=== PATIENT | male | born 1995 | race American Indian/Alaskan Native ===

== ENCOUNTER 2019-07-26 01:17 | Emergency (ER) | payer MEDICARE ==
--- NOTE | 2019-07-26 01:44 | Event Note ---
Date of service: 07/26/19 Face to Face: 23-year-old gentleman presenting with disorganized behavior, and presumed psychosis. There is no evidence of trauma. He is walking with a steady gait. Thought process is tangential and he is not demonstrative of decision-making capacity at this time. He is placed on a 1013, screening laboratory studies ordered, psychiatric consultation requested. Vital Signs 07/26/19 01:24 Temperature 97.7 F Pulse Rate 87 Respiratory 18 Rate Blood Pressure 135/84 O2 Sat by Pulse 97 Oximetry
[2019-07-26] MEDS ORDERED: HALOPERIDOL LACTATE 5 MG/1 ML INJ IM PRN (02:02)
[2019-07-26] MEDS ORDERED: LORazepam 2 MG/ML VIAL IM PRN (02:02)
--- NOTE | 2019-07-26 02:08 | Emergency Department Report ---
ED Psych HPI - General Chief Complaint: Psych Stated Complaint: MH EVALUATION Time Seen by Provider: 07/26/19 01:42 Source: patient Mode of arrival: Ambulatory - History of Present Illness Initial Comments: This is a 23-year-old male nontoxic, well nourished in appearance, no acute signs of distress presents to the ED with c/o of psychosis and audio and visual hallucinations. Patient stated he has been out of his medications. Patient denies any suicidal or homicidal ideation. Patient denies any fever, chills, nausea, vomiting, chest pain, shortness of breath, headache or stiff neck. Patient otherwise denies any symptoms. Denies any alcohol or drug consumption. Patient denies any allergies. MD Complaint: other (psychosis with hallucinations) Associated Psychiatric Symptoms: racing thoughts, auditory hallucinations, visual hallucinations, delusions History of same: Yes Quality: constant Improves With: none Worsens With: none Associated Symptoms: denies other symptoms. denies: confusion, headache, shortness of breath, nausea, vomiting, syncope, insomnia - Related Data Allergies Allergy/AdvReac Type Severity Reaction Status Date / Time No Known Allergies Allergy Unverified 07/26/19 01:29 ED Review of Systems ROS: Stated complaint: MH EVALUATION Other details as noted in HPI Constitutional: denies: chills, fever Eyes: denies: eye pain, eye discharge, vision change ENT: denies: ear pain, throat pain Respiratory: denies: cough, shortness of breath, wheezing Cardiovascular: denies: chest pain, palpitations Endocrine: no symptoms reported Gastrointestinal: denies: abdominal pain, nausea, diarrhea Genitourinary: denies: urgency, dysuria Musculoskeletal: denies: back pain, joint swelling, arthralgia Skin: denies: rash, lesions Neurological: denies: headache, weakness, paresthesias Psychiatric: auditory hallucinations, visual hallucinations. denies: anxiety, depression, homicidal thoughts, suicidal thoughts Hematological/Lymphatic: denies: easy bleeding, easy bruising ED Past Medical Hx - Past Medical History Hx Psychiatric Treatment: Yes (SCHIZOPHRENIA) - Surgical History Past Surgical History?: No - Social History Smoking Status: Never Smoker Substance Use Type: None ED Physical Exam - General Limitations: No Limitations General appearance: alert, in no apparent distress - Head Head exam: Present: atraumatic, normocephalic - Neck Neck exam: Present: normal inspection, full ROM - Respiratory Respiratory exam: Present: normal lung sounds bilaterally. Absent: respiratory distress, wheezes - Cardiovascular Cardiovascular Exam: Present: regular rate, normal rhythm, normal heart sounds - GI/Abdominal GI/Abdominal exam: Present: soft. Absent: distended, tenderness - Extremities Exam Extremities exam: Present: full ROM - Back Exam Back exam: Present: full ROM - Neurological Exam Neurological exam: Present: alert, oriented X3, normal gait - Psychiatric Psychiatric exam: Present: normal affect, normal mood - Skin Skin exam: Present: warm, dry, intact, normal color. Absent: rash ED Course Vital Signs 07/26/19 01:24 Temperature 97.7 F Pulse Rate 87 Respiratory 18 Rate Blood Pressure 135/84 O2 Sat by Pulse 97 Oximetry - Reevaluation(s) Reevaluation #1: 07/26/19 02:27 Patient is speaking in full sentences with no signs of distress noted. ED Medical Decision Making - Lab Data Result diagrams: 07/26/19 01:31 07/26/19 01:31 - Medical Decision Making This is a 23-year-old male that presents with psychosis with hallucinations. Patient is currently stable and was examined by me. Patient is unable to care for self. Labs are unremarkable. UA does have some WBCs but otherwise is within normal limits but my suspicion that this is a dirty catch. Patient has been placed on 1013 and patient to be examined and evaluated by psychiatrist. Patient will remain in the ER until cleared by psychiatry. Patient is medically cleared in the ED for psychiatry treatment facility. At time of admission, the patient does not seem toxic or ill in appearance. No acute signs of distress noted. Patient agrees to admission treatment plan of care. No further questions noted by the patient. Critical care attestation.: If time is entered above; I have spent that time in minutes in the direct care of this critically ill patient, excluding procedure time. ED Disposition Clinical Impression: Visual hallucination, Auditory hallucination Psychosis Qualifiers: Psychosis type: unspecified psychosis type Qualified Code(s): F29 - Unspecified psychosis not due to a substance or known physiological condition Disposition: DC/TX-65 PSY HOSP/PSY UNIT Is pt being admited?: No Condition: Stable
[2019-07-26 02:14] LABS: Basophils % (Auto) 0.7 % (0.0-1.8); Eosinophils # (Auto) 0.1 K/mm3 (0.0-0.4); Eosinophils % (Auto) 2.1 % (0.0-4.3); Hematocrit 38.7 % (35.5-45.6); Hemoglobin 13.2 gm/dl (11.8-15.2); Lymphocytes # (Auto) 1.2 K/mm3 (1.2-5.4); Lymphocytes % (Auto) 34.3 % (13.4-35.0); Mean Corpuscular HGB Conc 34 % (32-34); Mean Corpuscular Volume 95 fl (84-94); Monocytes # (Auto) 0.5 K/mm3 (0.0-0.8); Monocytes % (Auto) 13.4 % (0.0-7.3); Platelet Count 284 K/mm3 (140-440); Red Blood Count 4.09 M/mm3 (3.65-5.03); Red Cell Distribution Width 13.5 % (13.2-15.2)
[2019-07-26 02:19] LABS: BUN/Creatinine Ratio 13; Blood Urea Nitrogen 14 mg/dL (9-20); Calcium 9.3 mg/dL (8.4-10.2); Hemolysis Index 10
[2019-07-26 02:21] LABS: Amphetamine Screen,Urine PRESUMPTIVE NEGATIVE; Benzodiazepines Screen,Urine PRESUMPTIVE NEGATIVE; Cannabinoid Screen,Urine PRESUMPTIVE NEGATIVE; Cocaine Screen,Urine PRESUMPTIVE NEGATIVE; Methadone Screen,Urine PRESUMPTIVE NEGATIVE; Opiate Screen,Urine PRESUMPTIVE NEGATIVE
[2019-07-26 02:24] LABS: Bacteria,Urine 1+ /HPF (Negative); Bilirubin,Urine NEG (Negative); Blood,Urine NEG (Negative); Color,Urine Yellow (Yellow); Mucus,Urine FEW /HPF; Protein,Urine <15 mg/dL mg/dL (Negative)
[2019-07-26 08:46] VITALS: BP 119/76
--- NOTE | 2019-07-26 10:09 | Consultation ---
History of Present Illness - Reason for Consult Consult date: 07/26/19 Reason for consult: Mental Health Evaluation Requesting physician: WILFREDO SHELL - Chief Complaint Chief complaint: "The patient would not communicate" - History of Present Psychiatric Illness 23 y.o. AA male who presented to the ER for depression and AH's per the record. Today the patient would not cooperate during the assessment. Several attempts was made to engage the patient, but was unsuccessful. Medications and Allergies Allergies Allergy/AdvReac Type Severity Reaction Status Date / Time No Known Allergies Allergy Unverified 07/26/19 01:29 Active Meds: Active Medications Haloperidol Lactate (Haldol) 5 mg IM Q6HR PRN PRN Reason: Agitation Last Admin: 07/26/19 04:15 Dose: 5 mg Documented by: Lorazepam (Ativan) 2 mg IM Q4HR PRN PRN Reason: Agitation Last Admin: 07/26/19 04:15 Dose: 2 mg Documented by: Past psychiatric history - Past Medical History Past Medical History: other (Unabel to obtain ) Past Surgical History: Other (Unable to obtain ) - past Psychiatric treatment and history psychiatric treatment history: Unable to obtain a psy hx and a fam psy hx. - Social History Social history: other (Unabel to obtain ) Mental Status Exam - Vital signs Last Vital Signs Temp 98.3 F 07/26/19 08:45 Pulse 14 L 07/26/19 08:45 Resp 14 07/26/19 08:45 BP 119/76 07/26/19 08:45 Pulse Ox 100 07/26/19 08:45 - Exam Narrative exam: Unable to complete the MSE because the patient refused to cooperate. Results Result Diagrams: 07/26/19 01:31 07/26/19 01:31 Abnormal lab results 07/26/19 07/26/19 07/26/19 Range/Units 01:31 01:31 01:31 WBC 3.4 L (4.5-11.0) K/mm3 MCV 95 H (84-94) fl [place] % (Auto) 13.4 H (0.0-7.3) % Seg Neutrophils # 1.7 L (1.8-7.7) K/mm3 Urine WBC (Auto) (0.0-6.0) /HPF Salicylates < 0.3 L (2.8-20.0) mg/dL Acetaminophen < 5.0 L (10.0-30.0) ug/mL 07/26/19 Range/Units 01:58 WBC (4.5-11.0) K/mm3 MCV (84-94) fl [place] % (Auto) (0.0-7.3) % Seg Neutrophils # (1.8-7.7) K/mm3 Urine WBC (Auto) 22.0 H (0.0-6.0) /HPF Salicylates (2.8-20.0) mg/dL Acetaminophen (10.0-30.0) ug/mL All other labs normal. Assessment and Plan Assessment and plan: Impression: Today the patient refused to cooperate during the assessment. Recommendation/Plan: Continue 1013. Dispo: The patient was accepted at [facility] for inpatient psy services. Will staff with Dr Otoniel Up.
== END 2019-07-26 10:15 ==
LOC: ED 01:17 → EEVIPCON 01:17 → ED 10:15
DX: F29 Unspecified psychosis not due to a substance or known physiological condition (principal); F20.9 Schizophrenia, unspecified
CPT/HCPCS: 36415; 80048; 80307; 81001; 82550; 85025; 87086; 96372; 99285; J1630; J2060; 80320; G0480

== ENCOUNTER 2019-08-17 20:14 | Emergency (ER) | payer MEDICARE ==
--- NOTE | 2019-08-17 21:22 | Emergency Department Report ---
HPI - General Time Seen by Provider: 08/17/19 20:32 - HPI HPI: 23-year-old male presents to the emergency department with the complaint of suicidal ideations without a plan. The patient's timeline is slightly confusing but it appears that he was recently at [facility] and then was in the partial hospitalization program at the [place]. He says that he was watching television this afternoon and got locked out of the [facility] program and no one would answer the door. He then got angry and hopped on a bus and went back to some type of [facility] or residence that he was placed in near [facility]. He says his medications are "at [place]." He arrived from the [facility] via EMS. He has a history of schizophrenia, bipolar disorder and depression. ED Past Medical Hx - Past Medical History Previous Medical History?: Yes Hx Psychiatric Treatment: Yes (SCHIZOPHRENIA, bipolar, depression) - Surgical History Past Surgical History?: No - Social History Smoking Status: Never Smoker Substance Use Type: None - Medications Home Medications: Home Medications Medication Instructions Recorded Confirmed Last Taken Type Divalproex Dr [Dora Handy] 1 tab PO BID 08/17/19 08/17/19 Unknown History risperiDONE [RisperDAL] 1 tab PO HS 08/17/19 08/17/19 Unknown History ED Review of Systems ROS: Stated complaint: SUICIDAL Other details as noted in HPI Comment: All other systems reviewed and negative Constitutional: denies: chills, fever Eyes: denies: eye pain, vision change ENT: denies: ear pain, throat pain Respiratory: denies: cough, shortness of breath Cardiovascular: denies: chest pain, palpitations Gastrointestinal: denies: abdominal pain, vomiting Genitourinary: denies: dysuria, frequency Musculoskeletal: denies: back pain, arthralgia Neurological: denies: headache, weakness Psychiatric: depression, suicidal thoughts Physical Exam - Physical Exam Vital Signs: Vital Signs 08/17/19 20:34 Temperature 97.4 F L Pulse Rate 89 Respiratory 16 Rate Blood Pressure 145/92 O2 Sat by Pulse 99 Oximetry Physical Exam: GENERAL: The patient is well-developed well-nourished. HENT: Normocephalic. Atraumatic. Patient has moist mucous membranes. EYES: Extraocular motions are intact. NECK: Supple. Trachea is midline. CHEST/LUNGS: Clear to auscultation. There is no respiratory distress noted. HEART/CARDIOVASCULAR: Regular. There is no tachycardia. There is no murmur. ABDOMEN: There is no abdominal distention. SKIN: Skin is warm and dry. NEURO: The patient is awake, alert, and oriented. The patient is cooperative. The patient has no focal neurologic deficits. Normal speech. MUSCULOSKELETAL: There is no tenderness or deformity. There is no limitation range of motion. There is no evidence of acute injury. ED Course Vital Signs 08/17/19 20:34 Temperature 97.4 F L Pulse Rate 89 Respiratory 16 Rate Blood Pressure 145/92 O2 Sat by Pulse 99 Oximetry ED Medical Decision Making - Lab Data Result diagrams: 08/17/19 21:24 08/17/19 21:24 - Medical Decision Making This patient presents to the emergency department with the complaint of suicidal ideations. However he appears fixated more on getting back to the partial hospitalization program. He does not have any particular plan as to how he would harm himself. His story about being locked out of the [facility], going to the [facility], and getting back here via EMS, is rather convoluted and confusing to follow. However the patient is awake and oriented. His labs have been unremarkable. Vital signs stable throughout his ED course. The patient will be seen by the psychiatric team in the morning and is currently medically cleared for any psychiatric placement necessary. - Differential Diagnosis bipolar disorder, schizophrenia, schizoaffective, substance abuse Critical Care Time: No Critical care attestation.: If time is entered above; I have spent that time in minutes in the direct care of this critically ill patient, excluding procedure time. ED Disposition Clinical Impression: Suicidal ideations Disposition: DC/TX-65 PSY HOSP/PSY UNIT Is pt being admited?: No Condition: Stable Referrals: PRIMARY CAREMD [Primary Care Provider] - 3-5 Days Time of Disposition: 02:54
[2019-08-17 21:53] LABS: BUN/Creatinine Ratio 13; Blood Urea Nitrogen 10 mg/dL (9-20); Calcium 9.6 mg/dL (8.4-10.2); Hemolysis Index 9
[2019-08-17 22:01] LABS: Basophils % (Auto) 0.5 % (0.0-1.8); Eosinophils % (Auto) 0.7 % (0.0-4.3); Hemoglobin 13.9 gm/dl (11.8-15.2); Lymphocytes # (Auto) 1.4 K/mm3 (1.2-5.4); Lymphocytes % (Auto) 25.6 % (13.4-35.0); Mean Corpuscular HGB Conc 34 % (32-34); Mean Corpuscular Volume 96 fl (84-94); Monocytes # (Auto) 0.7 K/mm3 (0.0-0.8); Monocytes % (Auto) 12.8 % (0.0-7.3); Platelet Count 207 K/mm3 (140-440); Red Blood Count 4.28 M/mm3 (3.65-5.03); Red Cell Distribution Width 13.5 % (13.2-15.2)
[2019-08-17 23:03] LABS: Amphetamine Screen,Urine PRESUMPTIVE NEGATIVE; Benzodiazepines Screen,Urine PRESUMPTIVE NEGATIVE; Cannabinoid Screen,Urine PRESUMPTIVE NEGATIVE; Cocaine Screen,Urine PRESUMPTIVE NEGATIVE; Methadone Screen,Urine PRESUMPTIVE NEGATIVE; Opiate Screen,Urine PRESUMPTIVE NEGATIVE
[2019-08-17 23:05] LABS: Bilirubin,Urine NEG (Negative); Blood,Urine NEG (Negative); Color,Urine Yellow (Yellow); Protein,Urine <15 mg/dL mg/dL (Negative); Urobilinogen,Urine < 2.0 mg/dL (<2.0)
[2019-08-18] MEDS ORDERED: ALPRAZolam 0.5 MG TAB PO ONE (02:12)
[2019-08-18] MEDS ORDERED: WATER FOR INJ Sterile (PF) 10 ML ONE (04:56)
[2019-08-18] MEDS ORDERED: ZIPRASIDONE MESYLATE 20 MG VIAL IM ONE ×2 (04:56→05:09)
[2019-08-18 09:35] VITALS: BP 120/84
[2019-08-18] MEDS ORDERED: DIVALPROEX DR 500 MG TAB PO SCH (10:00)
[2019-08-18] MEDS ORDERED: HALOPERIDOL LACTATE 5 MG/1 ML INJ IM ONE (11:42)
[2019-08-18] MEDS ORDERED: diphenhydrAMINE 50 MG/ML VIAL IM ONE (11:47)
[2019-08-18] MEDS ORDERED: LORazepam 2 MG/ML VIAL IM ONE (12:23)
[2019-08-18] MEDS ORDERED: RISPERIDONE PO SCH (22:00)
[2019-08-18] MEDS ORDERED: risperiDONE 1 MG TAB PO SCH (22:00)
== END 2019-08-18 17:50 ==
LOC: ED 20:14
DX: F31.9 Bipolar disorder, unspecified (principal); F20.9 Schizophrenia, unspecified
CPT/HCPCS: 36415; 80048; 80307; 81001; 85025; 96372; 99285; J1200; J3486; 80320; G0480

== ENCOUNTER 2022-05-05 15:39 | Emergency (ER) | payer MEDICARE ==
--- NOTE | 2022-05-05 17:55 | Event Note ---
ED Screening Note ED Screening Note: 26-year-old male presenting with substernal chest pain. Patient is not very forthcoming with information, rates his pain an 8/10, denies fall or injury, no fever chills nausea vomiting, headache dizziness or vision changes. General: Nontoxic appearing no acute distress Cardiac: Regular rate, normal heart sounds Respiratory: Normal lung sounds bilaterally no use of hand stoner muscles GI/-normal sounds, nontender no guarding Musculoskeletal-normal inspection full range of motion Neuro-alert oriented x4. Cardiac quiet withdrawn. In the setting of a significantly high volume and record number of patients presenting to the emergency department and the fact that we have a limited space to see patients we have implemented the provider in triage protocol this allows an expedited initial exam of patients that might otherwise have left without being seen or who would wait longer than usual to be seen by provider. I interviewed the patient and performed a limited physical exam. This patient is a pulled from the waiting room to triage room for an initial assessment of adrenal studies and then returned to the waiting room pending results of the studies. The ultimate final evaluation and disposition may be performed by another provider depending on room and provider availability.
[2022-05-05 17:58] VITALS: BP 129/94
== END 2022-05-06 02:25 | disposition left against medical advice (07) ==
LOC: ED 15:39
DX: R07.9 Chest pain, unspecified (principal); Z53.21 Procedure and treatment not carried out due to patient leaving prior to being seen by health care provider